=== PATIENT | male | born 1980 | race Caucasian/White ===

== ENCOUNTER 2018-03-16 11:21 | Emergency (ER) | payer OTHER ==
[~2018-03-16] VITALS: Ht 172.7 cm; Wt 97.1 kg
[2018-03-16 11:30] VITALS: TEMP 36.8; Ht 172.7 cm; Wt 97.1 kg
[2018-03-16] MEDS ORDERED: SODIUM CHLORIDE 0.9% 1000ML 1,000 ML IV STA (12:05)
[2018-03-16 12:12] LABS: BASO % 0.2 %; BASO ABS # 0.01 K/uL (0-0.2); EOS % 1.7 %; EOS ABS # 0.08 K/uL (0-0.5); HEMATOCRIT 45.2 % (42-52); HEMOGLOBIN 16.5 g/dL (14.0-18.0); IG# 0.01 K/uL (0.00-0.02); LYMPH % 27.5 %; LYMPH ABS # 1.28 K/uL (1.2-3.4); MEAN CELL VOLUME 84.2 fL (80-100); MEAN CORPUSCULAR HEMOGLOBIN 30.7 pg (25-34); MEAN CORPUSCULAR HGB CONC 36.5 g/dl (32-36); MONO % 6.9 %; MONO ABS # 0.32 K/uL (0.11-0.59); NEUT % 63.5 %; NEUT ABS # 2.96 K/uL (1.4-6.5); PLATELET COUNT 154 K/uL (130-400); RED CELL DISTRIBUTION WIDTH CV 13.3 % (11.5-14.5); RED CELL DISTRIBUTION WIDTH SD 40.5 fL (36.4-46.3); WHITE BLOOD COUNT 4.66 K/uL (4.8-10.8)
[2018-03-16 12:19] LABS: ALBUMIN 4.6 gm/dl (3.4-5.0); ALT/SGPT 49 U/L (12-78); AST/SGOT 24 U/L (15-37); BLOOD UREA NITROGEN 11 mg/dl (7-18); CALCIUM 9.2 mg/dl (8.5-10.1); CARBON DIOXIDE 27 mmol/L (21-32); GLUCOSE 96 mg/dl (70-99); POTASSIUM 3.8 mmol/L (3.5-5.1); SODIUM 140 mmol/L (136-145)
[2018-03-16 12:30] LABS: ALKALINE PHOSPHATASE 52 U/L (45-117); TOTAL PROTEIN 8.4 gm/dl (6.4-8.2)
--- NOTE | 2018-03-16 12:43 | DIAGNOSTIC IMAGING REPORT ---
CHEST ONE VIEW PORTABLE HISTORY: 37 years-old Male dizziness, palpitations acute dizziness with cardiac palpitations COMPARISON: None available TECHNIQUE: Portable AP view of the chest FINDINGS: Cardiac silhouette is within the limits of normal. Increased markings at the level lung bases is thought to reflect normal pulmonary vascularity. There is no pneumothorax, pleural effusion, focal airspace consolidation or overt pulmonary edema. The bones of the chest appear grossly intact. IMPRESSION: No acute process. The above report was generated using voice recognition software. It may contain grammatical, syntax or spelling errors. Electronically signed by: Naun Gale M.D. 03/16/2018 12:42 PM Dictated Date/Time: 03/16/2018 12:41 PM
[2018-03-16] MEDS ORDERED: LORAZEPAM 0.5 MG TAB SL STA (14:13)
[2018-03-16] MEDS ORDERED: LORA-741 PO (14:57)
--- NOTE | 2018-03-16 14:59 | EMERGENCY ROOM VISIT NOTE ---
History First contact with patient: 11:50 Chief Complaint: CARDIAC ASSESSMENT Stated Complaint: DIZZY, LIGHTHEADED, RACING HEART Nursing Triage Summary: pt awoke last week with dizziness. has had some sinus congestion, did have a sore throat for a day. pt states he is dizzy all the time and feels like his heart is racing. also states feels like can't catch his breath. has had recent shots in upper back for pain management History of Present Illness The patient is a 37 year old male who presents to the Emergency Room with complaints of dizziness. Patient reports that his symptoms began 1 week ago. He woke up with the symptoms. He reports a sensation of dizziness/ lightheadedness. He does not have symptoms while sitting still, but develops symptoms immediately when moving his head or walking around. He reports a history of occasional palpitations but has felt his heart racing since the symptoms began. Symptoms have worsened throughout the day today. He feels slightly off balance but does not feel like the room is spinning. Patient has recently been seen for some upper back pain. He has seen neurology and his PCP for these issues. 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 He had a repeat study with IV contrast and is awaiting these results. Patient does admit to feeling very anxious regarding this. He denies chest pain or shortness of breath. He is not a smoker. He denies recent travel. He does note that his blood pressure has been very elevated at recent visits. Review of Systems A complete 10 point review of systems was reviewed with the patient with pertinent positives and negatives as per history of present illness. All else were negative. Past Medical/Surgical History Medical Problems: (1) No significant active problems Surgical Problems: (1) No significant past surgical history Family History Heart disease Hypertension Social History Smoking Status: Former Smoker Alcohol Use: none Housing Status: lives alone Occupation Status: employed Current/Historical Medications Scheduled PRN Lorazepam (Ativan), 1-2 TAB PO TID PRN for Anxiety Physical Exam Vital Signs Date Time Temp Pulse Resp B/P (MAP) Pulse Ox O2 Delivery O2 Flow Rate FiO2 03/16/18 15:09 77 16 150/101 95 03/16/18 14:21 80 153/102 98 03/16/18 13:07 81 20 163/98 96 Room Air 03/16/18 12:15 101 03/16/18 11:48 Room Air 03/16/18 11:30 36.8 99 18 174/111 99 Room Air Physical Exam VITALS: Vitals are noted on the nurse's note and reviewed by myself. Vital signs stable. GENERAL: This is a 37-year-old male, in no acute distress, nondiaphoretic, well- developed well-nourished. SKIN: The skin was without rashes. HEAD: Normocephalic atraumatic. EARS: External auditory canals clear, tympanic membranes pearly lenz without erythema or effusion bilaterally. EYES: Pupils equal round and reactive to light and accommodation. Extraocular movements intact. No nystagmus. MOUTH: Mucous membranes moist. Tonsils are not enlarged. Pharynx without erythema or exudate. NECK: Supple without nuchal rigidity. No lymphadenopathy. HEART: Regular rate and rhythm without murmurs gallops or rubs. LUNGS: Clear to auscultation bilaterally without wheezes, rales or rhonchi. MUSCULOSKELETAL: Strength 5/5 throughout. NEURO: Patient was alert and oriented to person place and time. Normal rapid alternating movements. Normal finger to nose testing. No focal neurological deficits. Medical Decision & Procedures ER Provider Diagnostic Interpretation: CHEST ONE VIEW PORTABLE HISTORY: 37 years-old Male dizziness, palpitations acute dizziness with cardiac palpitations COMPARISON: None available TECHNIQUE: Portable AP view of the chest FINDINGS: Cardiac silhouette is within the limits of normal. Increased markings at the level lung bases is thought to reflect normal pulmonary vascularity. There is no pneumothorax, pleural effusion, focal airspace consolidation or overt pulmonary edema. The bones of the chest appear grossly intact. IMPRESSION: No acute process. Laboratory Results 03/16/18 11:45 Red Blood Count 5.37, Mean Corpuscular Volume 84.2, Mean Corpuscular Hemoglobin 30.7, Mean Corpuscular Hemoglobin Concent 36.5, Mean Platelet Volume 10.0, Neutrophils (%) (Auto) 63.5, Lymphocytes (%) (Auto) 27.5, Monocytes (%) (Auto) 6.9, Eosinophils (%) (Auto) 1.7, Basophils (%) (Auto) 0.2, Neutrophils # (Auto) 2.96, Lymphocytes # (Auto) 1.28, Monocytes # (Auto) 0.32, Eosinophils # (Auto) 0.08, Basophils # (Auto) 0.01 03/16/18 11:45 Test 03/16/18 11:45 White Blood Count 4.66 K/uL (4.8-10.8) Red Blood Count 5.37 M/uL (4.7-6.1) Hemoglobin 16.5 g/dL (14.0-18.0) Hematocrit 45.2 % (42-52) Mean Corpuscular Volume 84.2 fL (80-100) Mean Corpuscular Hemoglobin 30.7 pg (25-34) Mean Corpuscular Hemoglobin Concent 36.5 g/dl (32-36) Platelet Count 154 K/uL (130-400) Mean Platelet Volume 10.0 fL (7.4-10.4) Neutrophils (%) (Auto) 63.5 % Lymphocytes (%) (Auto) 27.5 % Monocytes (%) (Auto) 6.9 % Eosinophils (%) (Auto) 1.7 % Basophils (%) (Auto) 0.2 % Neutrophils # (Auto) 2.96 K/uL (1.4-6.5) Lymphocytes # (Auto) 1.28 K/uL (1.2-3.4) Monocytes # (Auto) 0.32 K/uL (0.11-0.59) Eosinophils # (Auto) 0.08 K/uL (0-0.5) Basophils # (Auto) 0.01 K/uL (0-0.2) RDW Standard Deviation 40.5 fL (36.4-46.3) RDW Coefficient of Variation 13.3 % (11.5-14.5) Immature Granulocyte % (Auto) 0.2 % Immature Granulocyte # (Auto) 0.01 K/uL (0.00-0.02) Anion Gap 6.0 mmol/L (3-11) Est Creatinine Clear Calc Drug Dose 114.3 ml/min Estimated GFR () 110.9 Estimated GFR (Non- 95.7 BUN/Creatinine Ratio 11.1 (10-20) Calcium Level 9.2 mg/dl (8.5-10.1) Total Bilirubin 0.6 mg/dl (0.2-1) Aspartate Amino Transf (AST/SGOT) 24 U/L (15-37) Alanine Aminotransferase (ALT/SGPT) 49 U/L (12-78) Alkaline Phosphatase 52 U/L (45-117) Troponin I < 0.015 ng/ml (0-0.045) Total Protein 8.4 gm/dl (6.4-8.2) Albumin 4.6 gm/dl (3.4-5.0) Globulin 3.8 gm/dl (2.5-4.0) Albumin/Globulin Ratio 1.2 (0.9-2) Thyroid Stimulating Hormone (TSH) 3.040 uIu/ml (0.300-4.500) Medications Administered Medications (Trade) Dose Ordered Sig/Pierre Route Start Time Stop Time Status Last Admin Dose Admin Sodium Chloride 1,000 ml @ 999 mls/hr Q1H1M STAT IV 03/16/18 12:05 03/16/18 13:05 DC 03/16/18 12:13 999 MLS/HR Lorazepam (Ativan Tab) 0.5 mg NOW STAT SL 03/16/18 14:13 03/16/18 14:14 DC 03/16/18 14:20 0.5 MG ECG Per My Interpretation Indication: palpitations Rate (beats per minute): 94 Rhythm: normal sinus Findings: no acute ischemic change, no ectopy Comparison ECG Date: no prior available Medical Decision Differential diagnosis includes acute coronary syndrome, pulmonary embolism, pneumothorax, pericarditis, myocarditis, endocarditis, anxiety, vertigo, dehydration, electrolyte imbalance, mass/malignancy, among others. The patient is a 37-year-old male who presents today complaining of dizziness and a feeling like his heart is racing. Labs revealed no leukocytosis, anemia or concerning electrolyte abnormalities. Troponin was not elevated. EKG shows a normal sinus rhythm without ischemia or ectopy. The patient did admit to me that he feels extremely anxious regarding the MRI that he recently had. He states that he is anxious about the results of this. He does have a history of anxiety and previously was on Zoloft, but no longer takes this. He does admit that he feels like his anxiety is causing his symptoms today. He was given 0.5 mg Ativan sublingually and this did improve his symptoms significantly. He will be given a short course of this but was advised to contact his PCP immediately to schedule a follow-up appointment to discuss possibly restarting the Zoloft. The patient was agreeable with this plan of care. Based on the patient's presentation and work up, I feel the patient is stable for outpatient treatment. The patient was educated to return to the emergency department for any worsening of their current condition or new/concerning symptoms. He will follow up with his PCP. [facility] Drug Monitoring Program Search Results: patient reviewed within database, no issues identified Medication Reconcilliation Current Medication List: was personally reviewed by me Blood Pressure Screening Patient's blood pressure: Elevated blood pressure Blood pressure disposition: Elevated BP felt to be situational, Referred to PCP Impression Primary Impression: Anxiety Departure Information Dispostion Home / Self-Care Condition GOOD Prescriptions Lorazepam (ATIVAN) 0.5 Mg Tab 1-2 TAB PO TID Y for Anxiety, #12 TAB Prov: Aviva Morgan ., ESTELITA 03/16/18 Referrals Guy Bennett M.D. (PCP) Patient Instructions My [facility] Additional Instructions Ativan, 1-2 tablets as needed up to 3 times daily for symptoms of anxiety. Be aware that this medication will make you drowsy. It is illegal to drive while taking this medication. Stay well-hydrated. Contact your primary care provider to schedule follow-up within the week. Return to the emergency department with any worsening or new/concerning symptoms.
[2018-03-16 15:09] VITALS: BP 150/101; PULSE 77; O2SAT 95
== END 2018-03-16 15:10 | disposition home or self-care (01) ==
LOC: C.EDB 11:24 → C.EDC 15:10
DX: F41.9 Anxiety disorder, unspecified (principal); R00.2 Palpitations; M79.81 Nontraumatic hematoma of soft tissue; Z87.891 Personal history of nicotine dependence